=== PATIENT | male | born 1980 | race Caucasian/White ===

== ENCOUNTER → 2024-09-04 | Outpatient (CLI) | payer MEDICARE, OTHER ==
[2024-09-04 13:40] VITALS: BP 135/88; PULSE 85; RESP 18; TEMP 98.2
--- NOTE | 2024-09-04 14:02 | P.SLEEP ---
History of Present Illness DATE: 09/04/2024 CONSULTATION/NEW PATIENT EVALUATION HISTORY OF PRESENT ILLNESS/SLEEP-WAKE EVALUATION: 44-year-old gentleman had b een evaluated in the sleep center for possible obstructive sleep apnea hypopnea syndrome. SLEEP SCHEDULE: Usually sleep schedule from 11 PM to 9 AM. FALLING ASLEEP: Usually no significant problems with falling asleep. DURING SLEEP: Patient snores and wakes up from sleep 2 times with nocturia. No history of hypnogogical hallucinations, sleep paralysis, or cataplexy. DURING THE DAY/WAKE STATE: [], Sometimes falling asleep during the day.. [place] sleepiness scale is 2. Usually patient does not take scheduled naps. PAST MEDICAL HISTORY: Hypertension, allergy, hyperlipidemia, asthma, Pre diabetes mellitus. PAST SURGICAL HISTORY: Surgical treatment for carpal syndrome on the left side. MEDICATIONS: Levocetirizine 5 mg once a day, lisinopril 5 mg once a day, famotidine 20 mg once a day, montelukast 10 mg once a day, rosuvastatin 5 mg once a day, losartan 50 mg once a day, metformin 500 mg once a day, omeprazole 20 mg once a day, fluticasone, albuterol. SOCIAL HISTORY: Please see below. FAMILY HISTORY: Please see below. REVIEW OF SYSTEMS: Snoring, awakenings from sleep. No fevers. No double vision. No recent chest pain. No shortness of breath. No abdominal pain. No bleeding episodes. No blood in urine. No seizure episodes. PHYSICAL EXAMINATION: GENERAL: A pleasant patient without any distress. VITAL SIGNS: Please see below, weight 192 pounds, BMI 31.4. HEENT: PERRLA, EOMI. Evaluation of oropharynx showed tongue protrudes midline, low position of soft palate Mallampati 3. NECK: Supple. No JVD. Thyroid is not palpable. 17 inches in circumference. LUNGS: Clear to percussion and to auscultation. Good air exchange. No wheezing or rhonchi. HEART: S1, S2 regular. No murmurs, gallops or rubs. ABDOMEN: Soft and nontender. Bowel sounds are present. No organomegaly appreciated. EXTREMITIES: No clubbing or cyanosis. PHARMACY HELPER: Awake, alert, and oriented x3. Cranial nerves 2 to 7 intact. There is no fasciculation or atrophy noted. No focal deficits observed. ASSESSMENT: 1. Snoring, multiple awakenings from sleep, low position of soft palate Mallampati 3, wide neck 17 inches in circumference. Obstructive sleep apnea hypopnea syndrome. 2. Hypertension. 3. Allergy. 4. Acid reflux. 5 hyperlipidemia. 6 . Pre diabetes mellitus. 7. Asthma. 8. Status post surgical treatment for carpal tunnel syndrome on the left side. 9. Mild obesity, BMI 31.4 PLAN: 1. Polysomnography for evaluation of patient's breathing during sleep. 2. Following plan after reading sleep study. 3. Preferable position during sleep on the side. 4. No driving if patient feels any sleepiness. Patient is aware of civil and criminal liability for unsafe driving. 5. Sleep hygiene with regular sleep time for at least 7.5-8 hours. 6. Watching and losing weight. Thank you very much for referring this patient for consultation. Sincerely, Linus Hurtado MD, PhD, FAASM. Diplomat of [employer], Sleep Medicine Board by [employer] [facility] [place] cc: Sydney Borjas PA-C Past Medical History Past Medical History: Asthma, GERD/Reflux, Hyperlipidemia, Hypertension Additional Past Medical History / Comment(s): Allergies, prediabetic History of Any Multi-Drug Resistant Organisms: None Reported Past Surgical History: Orthopedic Surgery Additional Past Surgical History / Comment(s): L wrist - carpal tunnel Past Psychological History: No Psychological Hx Reported Smoking Status: Current every day smoker Past Alcohol Use History: Occasional Past Drug Use History: Marijuana - Past Family History Mother Family Medical History: Diabetes Mellitus Physical Exam Vitals: Vital Signs Temp Pulse Resp BP Pulse Ox 09/04/24 13:37 98.2 F 85 18 135/88 97 Intake and Output 09/03/24 09/04/24 09/04/24 22:59 06:59 14:59 Other: Weight 87.09 kg Sleep Note - Sleep Data ESS Total: 2 - Sleep Note Sleep Note: Temperature: 98.2 F Pulse Rate: 85 Respiratory Rate: 18 Blood Pressure: 135/88 SpO2: 97 Height: 5 ft 5.5 in Weight: 87.09 kg BMI: Neck Circumference: 17
== END ==
LOC: 3 N SLEEP 13:12
PROVIDERS: ATTEND Internal Medicine
DX: G47.33 Obstructive sleep apnea (adult) (pediatric) (principal); I10 Essential (primary) hypertension; K21.9 Gastro-esophageal reflux disease without esophagitis; E78.5 Hyperlipidemia, unspecified; E11.8 Type 2 diabetes mellitus with unspecified complications; J45.909 Unspecified asthma, uncomplicated; E66.01 Morbid (severe) obesity due to excess calories; Z88.9 Allergy status to unspecified drugs, medicaments and biological substances; Z68.31 Body mass index [BMI] 31.0-31.9, adult; Z98.890 Other specified postprocedural states
CPT/HCPCS: 99211

== ENCOUNTER → 2024-09-13 | Outpatient (CLI) | payer MEDICARE, OTHER ==
--- NOTE | 2024-09-13 13:34 | US ---
EXAMINATION TYPE: US thyroid st tissue head/neck DATE OF EXAM: 09/13/2024 COMPARISON: NONE CLINICAL INDICATION: Male, 44 years old with history of R59.0 LOCALIZED ENLARGED LYMPH NODES; Posteri or lower right neck lump x years; patient denies any other signs, symptoms, or relevant history TECHNIQUE: FINDINGS: ? Lymph node seen at patients AOC = 1.4 x 0.4 x 1.0 cm Simple appearing subcentimeter subcutaneous lymph node in the right posterior neck in the area of con cern is noted. IMPRESSION: As above. Advise repeat imaging if the area is felt to enlarge or becomes painful. [facility], , 09/13/2024 1:32 PM
== END | disposition home or self-care (01) ==
LOC: RADUSWWP 13:05
PROVIDERS: ATTEND Family Medicine
DX: R59.0 Localized enlarged lymph nodes (principal)
CPT/HCPCS: 76536